=== PATIENT | male | born 1975 | race African-American/Black ===

== ENCOUNTER 2024-01-23 12:11 | Emergency (ER) | payer BC, SELFPAY ==
--- NOTE | 2024-01-23 12:16 | ED.GENMED ---
History of Present Illness
General
Chief Complaint: Chest Pain
Source: patient and ambulance crew
Exam Limitations: none
Time Seen by Provider: 01/23/24 12:15
Travel History
Have you had any contact with someone who has COVID-19?: No
Do you have any symptoms of coronavirus? Fever > 100 degrees, chills, cough, shortness of breath, sore throat, loss of taste or smell, muscle aches, or headache?: No
History of Present Illness
History of Present Illness:
See MDM
Past History
Past History
ED Past Medical History: HTN, Hypercholesterolemia and NIDDM
ED Past Surgical History: Orthopedic
Social History
Tobacco: Smoker
Living: with family
Phy Exam
Physical Exam
Physical Exam:
See MDM
Scores
Heart Score for Chest Pain Patients
STEMI patient?: No
History: Slightly or Non-Suspicious
ECG: Normal
Age: >45 - <65 years
Risk Factors: 1 or 2 Risk Factors
Troponin: </= Normal Limit
Heart Score for Chest Pain Patients: 2
Heart Score Risk: 2.5% MACE over next 6 weeks
Course
Orders/Labs/Results
Orders:
Orders
01/23/24 12:12
Electrocardiogram (*1) Urgent
Reason for Study: Chest Pain
EKG- Treatment ONCE
01/23/24 12:15
CR Chest - 2 Views Urgent
Comment:
Reason For Exam: Central chest pain
01/23/24 12:21
Complete Blood Count/With Diff Urgent
Comprehensive Metabolic Panel Urgent
Troponin I Urgent
Abnormal Lab Results
01/23/24
12:21
MCV 78.1 L fL
(80.0-94.0)
MCH 26.2 L pg
(27.0-31.0)
RDW 15.5 H %
(11.5-14.5)
Glucose 164 H mg/dl
(70-99)
AST 97 H U/L
(17-59)
ALT 127 H U/L
(0-50)
Total Protein 8.4 H g/dl
(6.3-8.2)
01/23/24 12:21
01/23/24 12:21
Vital Signs
Initial and Last Documented VS:
Initial Vital Signs
Pulse Resp
73 16
01/23/24 12:16 01/23/24 12:16
Last Documented Vital Signs
Temp Pulse Resp BP Pulse Ox
98.6 F 66 11 134/78 99
01/23/24 12:18 01/23/24 13:15 01/23/24 13:15 01/23/24 13:00 01/23/24 12:45
MDM/Problems Addressed
Differential Diagnosis Includes:
HPI and MDM Narrative:
49-year-old male presenting with central chest pain. He does admit this has been ongoing for the past day or so. He was worried because symptoms progressed today. EMS was called and they provided 4 baby aspirin and 1 spray of nitroglycerin. The
medicine did not change his pain. He states it is sometimes worse when he sits down. There is no exertional component to this.
Given duration of symptoms, will obtain troponin. Will obtain chest x-ray
Physical exam
General: Well appearing and non-toxic
HEENT: protecting airway
Neck: supple
CV: No evidence of cyanosis. Regular rate and rhythm
Resp: No accessory muscle use
Abd: Non-distended
Extremities: No deformities. No leg edema
Neuro: alert
Psych: Normal affect
Skin: Intact
Problems Addressed including Acute and Chronic Conditions affecting care:
1. Chest pain
Acuity: acute
Prognosis: stable
Details: Given no exertional component, likely not ACS. Given duration of symptoms, will obtain troponin and chest x-ray
Updates
I updated patient on negative troponin and his elevated liver enzymes. Patient states his doctor is following him for his elevated liver enzymes already. 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 Discussed return precautions
Differential Diagnosis (but not limited to):
Testing considered:
Drug therapy (if applicable): OTC meds, please see d/c instruction regarding Rx drugs
Amount and/or Complexity of Data Reviewed
Clinical info obtained from: Patient
External data reviewed: N/A
Labs I independently reviewed (but not limited to): Troponin negative, elevated liver enzyme
Radiology: X-ray independently reviewed: Chest x-ray clear
Pulse Ox: not hypoxic
EKG independently reviewed: Sinus rhythm, left axis, no STEMI, PVCs
Emergency Room Technician: Sinus rhythm
Critical Care: N/A
Risk of Complication:
Social Determinants of health: Good social support
Discussed with other providers: N/A
Escalation of Care includes Admit/Obs: After being observed in the Emergency Department, pt stable for discharge.
Occasional wrong word or 'sound a like' substitutions may have occurred due to the inherent limitations of voice recognition software. Read the chart carefully and recognize, using context, where substitutions have occurred.
*Critical Care Note
Total Time (30-74mins, 75-104mins- exclusive of procedures): Not Applicable
ED Attending Note
-
Portions of this chart may have been created with voice recognition software.� Occasional wrong word or��sound alike� substitutions may have occurred due to the inherent limitations of voice recognition software.
Discharge Plan
Departure
Patient Disposition: Home (Routine Discharge)
Date of Disposition: 01/23/24
Time of Disposition: 13:31
Patient with high blood pressure during this ER visit?: Yes
Discharge Problem:
Chest pain
Instructions: Chest Pain (DC), BLOOD PRESSURE
Prescriptions:
No Action
amlodipine 10 MG tablet
10 mg PO DAILY
metformin 500 MG tablet extended release 24 hr
1,000 mg PO QPM
fluticasone propionate 50 mcg/actuation Blister With Device
1 inh INHALATION BID
glipizide 5 mg Tablet Extended Release 24hr
5 mg PO DAILY
rosuvastatin [Crestor] 10 mg Tablet
10 mg PO DAILY
losartan-hydrochlorothiazide 100-12.5 mg Tablet
1 tab PO DAILY
Januvia 100 mg Tablet
100 mg PO DAILY
Rinvoq 30 mg Tablet Extended Release 24 Hr
30 mg PO DAILY
Referrals:
Janneth Alvarez MD [Family Provider] -
Stand Alone Forms: Return to Work
Activity Restrictions/Additional Instructions:
Please return for any worsening symptoms.
You may return at any time if you have further concerns.
Please keep your cardiology appointment.
Thank you for choosing [facility].
Interventions
Interventions:
*Neglect/Abuse Screening Last Done: 01/23/24 12:19
*ED COVID-19 Vaccine History Last Done: 01/23/24 12:21
ED- Cardiac Assessment Last Done: 01/23/24 12:23
[2024-01-23 12:17] VITALS: BP 140/86
[2024-01-23 12:35] LABS: % Basophils 0.2 % (0-2); % Eosinophils 1.4 % (0-6); % Immature Granulocytes 0.1 % (0-0.5); % Lymphocytes 33.4 % (20.5-51.1); % Monocytes 7.9 % (1.7-9.3); Absolute Eosinophils 0.1 10^3/uL (0-0.7); Absolute Lymphocytes 2.7 10^3/uL (1.2-3.4); Absolute Monocytes 0.6 10^3/uL (0.1-0.6); Absolute Neutrophils 4.6 10^3/uL (1.4-6.5); Hematocrit 42.9 % (39.0-52.0); Hemoglobin 14.4 g/dL (13.0-18.0); Mean Corp Hgb Conc. 33.6 g/dL (33.0-37.0); Mean Corpuscular Hgb 26.2 pg (27.0-31.0); Mean Corpuscular Volume 78.1 fL (80.0-94.0); Mean Platelet Volume 10.2 fL (7.4-10.4); Nucleated Red Blood Cells % 0 % (-); Platelet Count 264 10^3/uL (130-400); Red Blood Cell Count 5.49 10^6/uL (4.70-6.10); Red Cell Dist. Width 15.5 % (11.5-14.5); White Blood Cell Count 8.1 10^3/uL (4.8-10.8)
[2024-01-23 12:48] LABS: ALT (SGPT) 127 U/L (0-50); AST (SGOT) 97 U/L (17-59); Albumin 4.6 g/dl (3.5-5.0); Alkaline Phosphatase 77 U/L (38-126); Blood Urea Nitrogen 15 mg/dl (9-20); Calcium 9.8 mg/dl (8.4-10.2); Carbon Dioxide 27 mmol/L (22-30); Chloride 102 mmol/L (98-107); Glucose 164 mg/dl (70-99); Potassium 3.9 mmol/L (3.5-5.1); Sodium 138 mmol/L (135-145); Total Bilirubin 0.5 mg/dl (0.2-1.3); Total Protein 8.4 g/dl (6.3-8.2); eGFR > 60.00
[2024-01-23 13:00] VITALS: BP 134/78
[2024-01-23 13:00] LABS: Troponin I < 0.012 ng/ml
== END 2024-01-23 13:54 | disposition home or self-care (01) ==
LOC: EMR 12:11
PROVIDERS: EMERGENCY PHYSICIAN Student in an Organized Health Care Education/Training Program; FAMILY PHYSICIAN Family Medicine
DX: R07.89 Other chest pain (principal); R74.8 Abnormal levels of other serum enzymes; F17.200 Nicotine dependence, unspecified, uncomplicated; I10 Essential (primary) hypertension
CPT/HCPCS: 99285; 71046; 80053; 84484; 85025; 93005